=== PATIENT | male | born 1950 | race Caucasian/White ===

== ENCOUNTER 2019-11-08 17:42 | Observation (INO) | payer MEDICARE, OTHER, SELFPAY ==
[2019-11-08] VITALS (7 sets, daily range): BP systolic 128–145; BP diastolic 78–101; PULSE 72–88; RESP 15–18; TEMP 36.7–37.3; O2SAT 94–98; BMI 23.6; BMI 23.8
--- NOTE | 2019-11-08 17:56 | EKG12_ITS ---
Test Reason : SYNCOPE Blood Pressure : / mmHG Vent. Rate : 089 BPM Atrial Rate : 089 BPM P-R Int : 140 ms QRS Dur : 092 ms QT Int : 358 ms P-R-T Axes : 038 -27 049 degrees QTc Int : 435 ms Normal sinus rhythm Nonspecific ST abnormality Abnormal ECG Confirmed by KORINA PRATHER, KIEL ([id number]), department editor BRENDA MANLEY ([id number]) on 11/10/2019 1:17:20 PM Referred By: ANDREW/DAMARIS Confirmed By:KIEL HUI MD
[2019-11-08 18:04] LABS: Absolute Lymphocyte Count 4.07 X10^3/uL (0.83-4.51); Absolute Neutrophil Count 5.4 X10^3/uL (2.0-7.7); Basophil# 0.12 X10^3/uL; Basophil% 1.1 % (0-1); Eosinophil# 0.23 X10^3/uL; Eosinophils% 2.1 % (0-5); Hematocrit 45.8 % (40-54); Lymphocyte # 4.07 X10^3/ul (4.0); Lymphocyte % 37.9 % (19-41); Mean Corp Hgb Conc 32.8 g/dL (32-36); Mean Corpuscular Hgb 29.7 pg (27.0-32.0); Mean Corpuscular Volume 90.7 fL (80-94); Mean Platelet Vol. 10.1 fl (6.2-12.0); Monocyte# 0.85 X10^3/uL; Monocyte% 7.9 % (0-10); NRBC Flagged by Analyzer 0 % (0-5); Neutrophil # 5.43 X10^3/uL (2.7-7.7); Neutrophil % 50.7 % (47-70); Platelet Count 308 K/mm3 (150-450); RBC Distribution Width CV 13.3 % (11.6-14.6); RBC Distribution Width SD 44.3 fl (35.1-43.9); Red Blood Count 5.05 M/mm3 (4.6-6.2); White Blood Count 10.7 K/mm3 (4.4-11.0)
--- NOTE | 2019-11-08 18:08 | RAD_ITS ---
STUDY: X-RAY CHEST REASON FOR EXAM: Male, 69 years old. Pt was eating complained of acid reflux and passed out twice. TECHNIQUE: Single AP portable view of the chest. COMPARISON: None. FINDINGS: The lungs are clear and expanded. There is no demonstrated pleural abnormality. Normal size heart. Normal mediastinum and efren. Normal visualized pulmonary arteries. Normal visualized aortic arch and descending thoracic aorta. Normal visualized thoracic spine. Normal visualized ribs, clavicles, and shoulders. There is no demonstrated abnormality of the visualized soft tissue structures of the upper abdomen. RAD/Chest 1 View (Portable) IMPRESSION: Normal x-ray examination of the chest. Electronically Signed: Connor Thornton MD at 18:20 EDT , Service support ,
[2019-11-08 18:19] LABS: Anion Gap 5 (5-15); BUN 10 mg/dL (7-18); BUN/Creat Ratio 10.7 RATIO (10-20); Calcium,Total 8.7 mg/dL (8.5-10.1); Chloride 107 mmol/L (98-107); Creatinine, Serum 0.93 mg/dL (0.70-1.30); EST Glomerular Filtration Rate 85 mL/min (>60); Est Glom Filt Rate - Afr Amer 103 mL/min (>60); Estimated Creatinine Clearance 73.91 ml/min; Glucose 128 mg/dL (74-106); Potassium 3.6 mmol/L (3.5-5.1); Sodium Level 139 mmol/L (136-145)
--- NOTE | 2019-11-08 18:59 | CT_ITS ---
STUDY: CT BRAIN WITHOUT CONTRAST REASON FOR EXAM: Male, 69 years old. Syncope. RADIATION DOSAGE (If Supplied By Facility): CTDIvol = ( 44.99 ) mGy, DLP = ( 796.11 ) mGycm TECHNIQUE: Transaxial CT imaging of the brain was performed without administration of intravenous contrast material. Individualized dose optimization techniques were used for this CT. COMPARISON: None. FINDINGS: There is no acute bleed or infarct. There are normal white matter tracts. The ventricles are normal in configuration. There is no hydrocephalus. The visualized paranasal sinuses are clear. The mastoid air cells are well aerated. There is no skull fracture. CT/Brain/Head without Contrast IMPRESSION: No acute intracranial abnormality. Electronically Signed: Sandeep Alberts, at 19:57 EDT Tel , Service support ,
[2019-11-08 19:32] LABS: D-Dimer Quantitative (DVT/PE) <= 0.27 FEU/ug/m (0.27-0.49)
--- NOTE | 2019-11-08 20:42 | ED.DCSUM_ITS ---
- ER Visit Summary Date of Service: 11/08/19 Chief Complaint: Chest pain and syncope History of Present Illness: The patient is a 69 M who presents with 2 syncopal episodes that occurred today. Patient states he was eating when he developed pain in his lower chest. Patient states he passed out. states the patient turned white and fell to the left. states his right arm was shaking but his left arm was not moving at all. Patient states he felt a burning in his lower chest prior to passing out. Patient does admit to a recent cough. Patient denies any nausea or vomiting. Patient denies any diaphoresis. Patient denies any shortness of breath. Physical Examination: Vital signs are stable. Patient is afebrile. Patient is in no acute distress. Oral mucosa is pink and moist. Neck is supple. Trachea is midline. There is no JVD noted. Heart was regular rate and rhythm. Lungs are clear and equal bilaterally. Abdomen is soft. Bowel sounds are normal. There is no tenderness. There is no rebound or guarding noted. Skin is warm dry. Cranial nerves II through XII are intact. There are no focal motor or sensory deficits noted. Extremities are intact. There is no calf tenderness or edema. Test Results: EKG showed normal sinus rhythm with a rate of 89. There are no acute ST or T wave changes. CBC, basic metabolic profile, and troponin were obtained and were all within normal limits. D-dimer was normal. Portable chest x-ray was obtained. There is no acute cardiopulmonary process. CT scan of the brain was obtained. There is no acute intracranial abnormality. These were interpreted by the radiologist and reviewed by myself. Emergency Department Course and Treatment: Patient was resting comfortably on reevaluation. Patient had no further syncopal episodes here in the emergency department. Patient had no cardiac dysrhythmias. Case was discussed with the hospitalist. He will admit the patient to PCU. Patient understood and was agreeable with the plan. All questions were answered. Disposition: Admit to hospital Impression: 1. Syncope 2. Chest pain This note was generated with [employer] software. It may contain incorrect words, spelling, and punctuation that were not noted in review of the chart prior to signing ED Disposition - Plan for ED Patient: Disposition: Acute Care Hospital [facility] Diagnosis: Syncope and collapse, Chest pain
--- NOTE | 2019-11-08 20:48 | HP.PCM_ITS ---
Problem List (1) Syncope and collapse Status: Acute (2) Chest pain Status: Acute History of Present Illness Date of Admission: 11/08/19 Chief Complaint: syncope The patient is a 69 year old M with a significant history of acid reflux who presents to the emergency department with syncope. Reportedly patient was sitting in a car with his eating a meal from a restaurant. The patient began to have heart burn. Although typically with drinking water his heartburns goes away this time around his heart burn persisted. The patient then slumped over and lost consciousness. His found that his right arm was jerking. Patient's became responsive but then went into another episode where he was unresponsive. With a second episode of unresponsiveness he did not have any jerking of his arm. was shaking patient's and screaming a lot for help yet patient remained unaware. The patient did not have bowel or bladder incontinence. Patient did not bite his tongue. Patient denies presyncopal episode. When patient came up from his presyncopal episode he felt foggy. Past Medical History Medical History: Medical History (Last Reviewed 11/08/19 @ 22:[address] Dov Chau MD) GERD (gastroesophageal reflux disease) K21.9 Allergies No Known Allergies Allergy (Verified 11/08/19 17:49) Home Medications: Ambulatory Orders Medication Instructions Recorded Acetaminophen/Diphenhydramine 1 ea PO QHS 11/08/19 [Acetaminophen-Diphenhyd 500-25] Surgical History: appendectomy Smoking Status: Former smoker Alcohol: Rare - *Family History Maternal History Items: - - His mother was healthy and she at the age of 94. Paternal History Items: Cancer - His father had colon cancer and he at the age of 89. Review of Systems Constitutional: Denies: Chills, Fever, Weight Change HEENT: Denies: Head Aches, Sinus Congestion, Sinus Drainage Cardiovascular: Reports: Syncope. Denies: Chest Pain, Palpitations Respiratory: Denies: Cough, Shortness of breath at rest, Sputum production Gastrointestinal: Denies: Abdominal Pain, Nausea, Vomiting Genitourinary: Denies: Dysuria Musculoskeletal: Denies: Joint Pain, Joint Tenderness Skin: Denies: Rash, Wounds Neurological: Denies: Numbness, Tingling, Focal weakness Psychiatric: Denies: Anxiety, Depression, Homicidal Ideations, Suicidal Ideations Hematologic/ Lymphatic: Denies: Easy Bruising, Easy Bleeding VTE Information - Inpt Only VTE Present on Admission: No VTE Mechan Device Prophylaxis: None VTE Pharm Prophylaxis ordered?: Yes Patient Problems: Active and Suspected Problems (Last Updated 11/08/19 @ 22:[address] Dov Chau MD) Syncope and collapse (Acute) Chest pain (Acute) - Physical Exam Vitals/I&O's: Vital Signs Temp Pulse Resp BP Pulse Ox 98.0 F 86 16 128/78 H 98 11/08/19 17:45 11/08/19 20:25 11/08/19 20:25 11/08/19 20:25 11/08/19 20:25 Oxygen Delivery Method Room Air Weight: 72.575 kg Body Mass Index (BMI) 23.6 General: Alert, Oriented x3, Cooperative HEENT: Atraumatic, PERRLA, EOMI, Normocephalic Neck: Supple, No JVD, Negative Carotid Bruits Lungs: Clear to auscultation, Normal air movement, No rhonchi, No wheeze, No rales Cardiovascular: Regular rate, No murmurs Abdomen: Bowel Sounds Present, Soft, Non Tender Extremities: No edema, Capillary Refill Less than 3 Seconds Skin: No rashes, No breakdown Musculoskeletal: No Tenderness to Palpation of Joints or Extremities Neurological: Cranial nerves II-XII grossly intact Psych/Mental Status: Normal Affect, Appropriate Laboratory Results 11/08/19 17:45: WBC 10.7, RBC 5.05, Hgb 15.0, Hct 45.8, MCV 90.7, MCH 29.7, MCHC 32.8, RDW Std Deviation 44.3 H, RDW Coeff of Amara 13.3, Plt Count 308, MPV 10.1, Immature Gran % (Auto) 0.300, Neut % (Auto) 50.7, Lymph % (Auto) 37.9, [place] % (Auto) 7.9, Eos % (Auto) 2.1, Baso % (Auto) 1.1 H, Absolute Neuts (auto) 5.4, Absolute Lymphs (auto) 4.07, Nucleated RBC % 0 11/08/19 17:45: Sodium 139, Potassium 3.6, Chloride 107, Carbon Dioxide 27.0, Anion Gap 5, BUN 10, Creatinine 0.93, Estim Creat Clear Calc 73.91, Est GFR (MDRD) Af Amer 103, Est GFR (MDRD) Non-Af 85, BUN/Creatinine Ratio 10.7, Glucose 128 H, Calcium 8.7, Troponin I < 0.015 11/08/19 17:45: D-Dimer Quant (PE/DVT) <= 0.27 Assessment/Plan All Active Problems (Last Updated 11/08/19 @ 22:[address] Dov Chau MD) Syncope and collapse (Acute) Chest pain (Acute) The patient is a 69 year old M with a significant history of acid reflux who presents to the emergency department with syncope and collapse. Syncope and collapse. Likely vasovagal. EKG showed nonspecific ST abnormalities. Will observe in the progressive care unit. Placed on telemetry Echocardiogram ordered. Orthostatic vitals. Get EEG. Check prolactin GERD Reportedly he used to take medication for GERD every day but he stopped taking as his symptoms resolved. We will put on daily Protonix. Chest pain Likely from GERD Protonix as above. Aspirin 324 mg x 1 given the emergency department. Trend troponin. DVT prophylaxis Subcutaneous Lovenox. OBSV E&M: [id number] Initial observation care L3
[2019-11-08] MEDS: Aspirin 81 MG TAB.CHEW 324 MG PO (21:15)
[2019-11-08] MEDS: Pantoprazole Sodium 40 MG Tablet PO (22:54)
[2019-11-08 23:20] LABS: Prolactin 51.9 ng/mL
[2019-11-09 02:51] VITALS: PULSE 67
[2019-11-09 04:40] VITALS: BP 110/70; PULSE 74; RESP 16; TEMP 36.7; O2SAT 96
[2019-11-09 04:47] VITALS: BP 110/70; BP 115/72; BP 124/90; PULSE 74; PULSE 78
[2019-11-09 06:58] VITALS: PULSE 66
[2019-11-09 07:20] VITALS: O2SAT 95
[2019-11-09 09:40] VITALS: BP 132/95; PULSE 71; RESP 18; TEMP 36.8; O2SAT 93
--- NOTE | 2019-11-09 10:59 | DCINST_ITS ---
- Discharge Diagnoses Current Active Problems: Current Active and Chronic Problems (Last Reviewed 11/08/19 @ 22:[address] Dov Chau MD) Syncope and collapse (Acute) Chest pain (Acute) You will use the following diet at home:: No restrictions Your food should be the consistency of: Regular Your liquids should be the consistency of: Regular/Thin Discharge Activity: Return to Normal Activity Additional Instructions: Resume use of your previous proton pump inhibitor (omeprazole or lansoprazole) on a daily basis. Allergies/Adverse Reactions: Allergies No Known Allergies Allergy (Verified 11/08/19 17:49) Medications to take at Discharge Acetaminophen/Diphenhydramine [Acetaminophen-Diphenhyd 500-25] 1 ea PO QHS 11/08/19 Primary Care Physician: Jeronimo Boss MD [Primary Care Provider] - Please follow up with your Primary Care Physician in: 1 week Test Results: Test results from this visit will be discussed in further detail at your follow- up appointment, if applicable. Proposed Discharge Date: 11/09/19
--- NOTE | 2019-11-09 12:52 | DS.PCM_ITS ---
<Efra Bazan - Last Filed: 11/09/19 12:52> Discharge Date and Diagnosis Date of Admission: 11/08/19 Date of Discharge: 11/09/19 - Primary Discharge Diagnosis Acute Problems: Syncope due to severe pain GERD Hospital Course and Treatment Imaging Results: RAD/Chest 1 View (Portable) IMPRESSION: Normal x-ray examination of the chest. CT/Brain/Head without Contrast IMPRESSION: No acute intracranial abnormality. Operations: None Procedures: None Summary of Care Provided: Hospital course: The patient is a 69 year old M with pmhx of GERD, no cardiac hx, who presented to the ER with c/o syncope. The patient was sitting at a drive up diner in his car. He began eating a sandwich and croatian fries and felt heart burn start. This became severe, worse than he has had it before. He felt lightheaded and his saw him slump to the side and thought his arm might be twitching. He woke up and it happened a second time. He felt fine after the 2nd episode. He had no SOB. He had no symptoms prior to this, and has been physically active with no exertional symptoms. He states this felt just like his usual acid reflux but more intense. He states he stopped taking prevacid 3 weeks ago as he had been symptom free for a while. In the ER he had a negative CT brain, negative troponin, negative CXR, negative EKG, negative D dimer, negative prolactin. He had no tongue biting, post ictal phase, or loss of bowel/bladder control, so there was no suspicion for seizure. He was placed in the PCU and monitored overnight.Troponin was negative x3. No events on tele. No further symptoms after admission. We discussed the likeliness that this syncopal episode was likely induced by his s evere pain, which was likely from his GERD. We recommended he resume the PPI that he had previously been on, prevacid or omeprazole. He was discharged home in stable condition. He will need follow up with his PCP in 1 week. This patient was seen by Efra Bazan PA-C under the supervision of Doctor High. [] - Physical Exam Vitals/I&O's: Vital Signs Temp Pulse Resp BP Pulse Ox 98.3 F 71 18 132/95 H 93 11/09/19 09:40 11/09/19 09:40 11/09/19 09:40 11/09/19 09:40 11/09/19 09:40 Oxygen Delivery Method Room Air Weight: 161 lb 8 oz Body Mass Index (BMI) 23.8 Intake and Output for Last 24 Hours 11/07/19 11/08/19 11/09/19 23:59 23:59 23:59 Intake Total 125 / 125 100 / 100 Balance 125 / 125 100 / 100 General: Alert, Oriented x3, Cooperative HEENT: Atraumatic, PERRLA, EOMI, Normocephalic Neck: Supple, No JVD, Negative Carotid Bruits Lungs: Clear to auscultation, Normal air movement Cardiovascular: Regular rate, No murmurs Abdomen: Bowel Sounds Present, Soft, Non Tender Extremities: No edema, Capillary Refill Less than 3 Seconds Skin: No rashes, No breakdown Musculoskeletal: No Tenderness to Palpation of Joints or Extremities Neurological: Cranial nerves II-XII grossly intact Psych/Mental Status: Normal Affect, Appropriate, Alert and oriented to time, place, person, mood and affect Laboratory Results 11/08/19 17:45: WBC 10.7, RBC 5.05, Hgb 15.0, Hct 45.8, MCV 90.7, MCH 29.7, MCHC 32.8, RDW Std Deviation 44.3 H, RDW Coeff of Amara 13.3, Plt Count 308, MPV 10.1, Immature Gran % (Auto) 0.300, Neut % (Auto) 50.7, Lymph % (Auto) 37.9, [place] % (Auto) 7.9, Eos % (Auto) 2.1, Baso % (Auto) 1.1 H, Absolute Neuts (auto) 5.4, Absolute Lymphs (auto) 4.07, Nucleated RBC % 0 11/08/19 17:45: Sodium 139, Potassium 3.6, Chloride 107, Carbon Dioxide 27.0, Anion Gap 5, BUN 10, Creatinine 0.93, Estim Creat Clear Calc 73.91, Est GFR (MDRD) Af Amer 103, Est GFR (MDRD) Non-Af 85, BUN/Creatinine Ratio 10.7, Glucose 128 H, Calcium 8.7, Troponin I < 0.015 11/08/19 17:45: D-Dimer Quant (PE/DVT) <= 0.27 11/08/19 17:45: Prolactin 51.9 11/08/19 22:30: Troponin I < 0.015 11/09/19 01:14: Troponin I < 0.015 Discharge Diet: Low fat/ Low Cholesterol, 2000 mg Sodium Diet Discharge Activity: Return to Normal Activity Home Medications: Medications to take at Discharge Acetaminophen/Diphenhydramine [Acetaminophen-Diphenhyd 500-25] 1 ea PO QHS 11/08/19 Primary Care Physician: Jeronimo Boss MD [Primary Care Provider] - Please follow up with your Primary Care Physician in: 1 week Disposition: Home Minutes spent on discharge:: 35 Patient Condition:: Stable Medical Necessity - Tobacco Use Smoking Status: Former smoker Meaningful Use Info Meaningful Use Diagnoses (Choose all that apply): None applicable <Nasreen High E - Last Filed: 11/09/19 13:10> Hospital Course and Treatment Summary of Care Provided: Hospitalist note: Discharge summary above reviewed and I concur with above discharge treatment plan. Patient presented to the emergency room because of chest pain that started after he ate a sandwich with Ethiopian fries. He does have a history of GERD and he stated that the pain is similar to the heartburn pain that he has been having but it is more intense this time. At that time, he felt lightheaded and reportedly, he passed out. The syncope is attributed to severe pain. His EKG revealed normal sinus rhythm without evidence of acute segment changes or cardiac arrhythmias. CT scan brain showed no acute findings. Troponin was negative x3. Chest x-ray showed no acute findings. Routine blood work was unremarkable. D-dimer was normal. Serum prolactin was done and was normal. Patient stated that he stopped taking Prevacid 3 weeks ago and he has been symptom-free since then. He quit smoking 50 years ago, had no history of hypertension or diabetes. No family history of premature CAD. This syncope attributed to severe pain. His chest pain attributed to severe GERD. At this time, ACS is very unlikely. On the day of discharge, patient denied any more chest pain, denied any other symptoms. His vital signs were stable. Patient discharged home in a stable medical condition, discharged on his same Prevacid omeprazole that he has been taking at home, recommended from with PCP in 1 week. - Physical Exam General: Alert, Oriented x3, Cooperative, No apparent distress. HEENT: Atraumatic, PERRLA, EOMI. Neck: Supple, No JVD, Negative Carotid Bruits, Trachea Midline, Thyroid Normal. Lungs: Clear to auscultation, Normal air movement, No rhonchi, No wheeze, No rales. Cardiovascular: Regular rate, Regular Rhythm, Normal S1, Normal S2, PMI Normal. Abdomen: Bowel Sounds Present, Soft, Non Tender, Non-Distended, No Hepato- splenomegaly. Extremities: No clubbing, No cyanosis, No edema Skin: No rashes, No breakdown Neurological: Cranial nerves are intact, neuro grossly intact Vital Signs are stable. This note was generated with [employer] dictation software. It may contain incorrect words, spelling, and punctuation that were not noted in checking the note before signing. - Physical Exam Vitals/I&O's: Vital Signs Temp Pulse Resp BP Pulse Ox 98.3 F 71 18 132/95 H 93 11/09/19 09:40 11/09/19 09:40 11/09/19 09:40 11/09/19 09:40 11/09/19 09:40 Oxygen Delivery Method Room Air Weight: 161 lb 8 oz Body Mass Index (BMI) 23.8 Intake and Output for Last 24 Hours 11/07/19 11/08/19 11/09/19 23:59 23:59 23:59 Intake Total 125 / 125 100 / 100 Balance 125 / 125 100 / 100 Laboratory Results 11/08/19 17:45: WBC 10.7, RBC 5.05, Hgb 15.0, Hct 45.8, MCV 90.7, MCH 29.7, MCHC 32.8, RDW Std Deviation 44.3 H, RDW Coeff of Amara 13.3, Plt Count 308, MPV 10.1, Immature Gran % (Auto) 0.300, Neut % (Auto) 50.7, Lymph % (Auto) 37.9, [place] % (Auto) 7.9, Eos % (Auto) 2.1, Baso % (Auto) 1.1 H, Absolute Neuts (auto) 5.4, Absolute Lymphs (auto) 4.07, Nucleated RBC % 0 11/08/19 17:45: Sodium 139, Potassium 3.6, Chloride 107, Carbon Dioxide 27.0, Anion Gap 5, BUN 10, Creatinine 0.93, Estim Creat Clear Calc 73.91, Est GFR (MDRD) Af Amer 103, Est GFR (MDRD) Non-Af 85, BUN/Creatinine Ratio 10.7, Glucose 128 H, Calcium 8.7, Troponin I < 0.015 11/08/19 17:45: D-Dimer Quant (PE/DVT) <= 0.27 11/08/19 17:45: Prolactin 51.9 11/08/19 22:30: Troponin I < 0.015 11/09/19 01:14: Troponin I < 0.015 Disposition: Home Minutes spent on discharge:: 27 Patient Condition:: Stable Meaningful Use Info Meaningful Use Diagnoses (Choose all that apply): None applicable OBSV E&M: 00586 Observation care discharge
== END 2019-11-09 11:30 | disposition home or self-care (01) ==
LOC: ED 18:52 → PCU 21:19
PROVIDERS: Admitting Provider Hospitalist; Emergency Provider Emergency Medicine; Visit Provider Hospitalist
DX: R55 Syncope and collapse (principal); K21.9 Gastro-esophageal reflux disease without esophagitis; Z87.891 Personal history of nicotine dependence
CPT/HCPCS: 36415; 70450; 71045; 80048; 84146; 84484; 85025; 85379; 93005; 99218; 99285; A4216; G0378